=== PATIENT | female | born 1970 | race Caucasian/White ===

== ENCOUNTER 2016-09-22 11:56 | Emergency (ER) | payer MEDICAID ==
[~2016-09-22] VITALS: Ht 167.6 cm; Wt 81.6 kg
[~2016-09-22 11:56] MED LIST: BENICAR HCT 12.1 TAB PO; BISOPROLOL/HCTZ1 TA2 PO; CLINDAMYCIN HC300 MG PO; DARVOCET-N6 EACH/PAK OR; ISORDIL 10MG. T10 MG PO; OMEPRAZOLE40 MG PO; PHENERGAN 25MG.25 MG PR; PRAVASTATIN 20M20 MG PO; TOPAMAX200 MG PO; XANAX 0.5MG TA0.5 MG PO
[2016-09-22] MEDS ORDERED: KEPPRA 500 MG500 MG PO (12:14)
--- NOTE | 2016-09-22 12:39 | Emergency Room Report ---
History of Present Illness Time Seen by [id number] Presenting Problem in Triage Pt arrived:Walked Presenting Problem:PT C/O N/V/D X5-6 WEEKS. PT REPORTS BEING SEEN IN [facility] ED SEVERAL TIMES OVER THE PAST FEW WEEKS. PT REPORTS THAT SHE HASN'T BEEN ABLE TO KEEP DOWN ANY OF HER MEDS AND HAS BEEN INCONTINENT OF STOOL SEVERAL TIMES. PT REPORTS PAIN AROUND THE UMBILICUS AND RUQ OF ABD. 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 N Clinical Suspician of Infection? N Mental Status: 1 - Regular (Normal Baseline) Sepsis Risk:Low Sepsis Risk Have you (or family members/close friends) recently traveled outside the [place]? N If Yes, where/when: Have you had exposure to infectious disease within the past month? N TB? Other? Specify: Comment The patient says she's been sick for about 5-6 weeks with explosive yellow diarrhea and vomiting. No blood in her diarrhea. She has generalized abdominal pain. She has been to the emergency department at [facility] 3-4 times for this. She says she has not been admitted. She has had a couple of CAT scans. She has been tested for C. difficile which was negative. She was however also treated for the possibility of C. difficile by her primary care physician with Flagyl, which did not change anything. She was also diagnosed with a UTI and was treated with antibiotics for that. He has been taking [id number]-lov-[id number] Imodium without improvement. She has not seen her PCP, only spoken with him on the phone several times, Dr. Salter. She has a history of getting a colonoscopy in her 20s for frequent formed bowel movements, to rule out Crohn's disease. 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 She also complains of generalized weakness and muscle cramps. Multiple falls due to generalized weakness. States she is not able to get into the bathtub by her self or brush her hair by her self. She says that she has been hypokalemic during this episode and was treated with potassium in the emergency room, but is not on prescription potassium. She has a seizure disorder and is on Topamax, clonazepam, and Keppra, but has not taken it in 2 days because of nausea and vomiting. ALLERGIES Coded Allergies: Cephalosporins (Mild, 09/22/16) Penicillins (Mild, 09/22/16) acetaminophen (From LORTAB) (Mild, 09/22/16) ceftriaxone (Mild, 09/22/16) codeine (Mild, 09/22/16) hydrocodone (From LORTAB) (Mild, 09/22/16) ketorolac (Mild, 09/22/16) meperidine (From DEMEROL) (Mild, 09/22/16) metoclopramide (From REGLAN) (Mild, 09/22/16) morphine (Mild, 09/22/16) ondansetron (Mild, 09/22/16) sumatriptan (From IMITREX) (Mild, 09/22/16) vancomycin (Mild, 09/22/16) Home Medications Reported Medications OLMESARTAN/HYDROCHLOROTHIAZIDE (Benicar Hct 20-12.5 MG Tablet) 1 TAB PO DAILY BISOPROLOL FUMARATE/HCTZ (Bisoprolol-Hctz 5-6.25 MG Tab) 2 TAB PO DAILY Isosorbide Dinitrate (Isordil 10MG. Tablet (Generic)) 10 MG PO DAILY Alprazolam (Xanax 0.5MG) 0.5 MG PO TID Omeprazole (Omeprazole 40MG) 40 MG PO DAILY Pravastatin Sodium (Pravastatin 20MG) 5 MG PO DAILY Topiramate (Topamax) 100 MG PO QHS Clindamycin Hcl (Clindamycin 300MG) 300 MG PO TID Levetiracetam (Keppra 500 Mg Tablet) 500 MG PO BID History Medical History General CAD? No Angina: Yes CT: No Hypertension? Yes Hyperlipidemia? Yes CHF? No DVT? No PE? No COPD? No Asthma? No Anemia? No GERD? No Gastric ulcers? No GI Bleed? No Hernia? No Thyroid Problems? No Hypothyroidism? No CVA? No Seizures? No Diabetes? No Renal Insuffiency? No End Stage Renal Disease? No UTI? No Stones? No BPH? No GB Disease: Yes Nephritic Syndrome? No Asplenia? No Hepatitis? No Sickle Cell Disease? No Arthritis? No Migraines? No Cataracts? No Glaucoma? No MRSA? No HIV? No TB? No Anxiety? No Depression? No Cancer? No More? 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 Gastrointestinal abdominal pain, diarrhea, vomiting Musculoskeletal muscle pain Physical Exam Vital Signs Vital Signs Date Time Temp Pulse Resp B/P Pulse O2 O2 Flow FiO2 Ox Delivery Rate 09/22 1257 16 09/22 1205 98.4 79 18 148/81 93 General Appearance normal appearance, WD/WN Eye Exam - bilateral eye normal exam, bilateral eye PERRL, bilateral eye EOMI Ear, Nose, Throat hearing grossly normal, dry mucous membranes Neck normal inspection, non-tender, supple, full range of motion Respiratory Status Yes: trachea midline, chest symmetrical, non tender chest. No: respiratory distress. Lung Sounds bilateral: normal breath sounds, lungs clear. 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 Yes Dylan was queried for this patient? Yes Reference #: [id number] Comment pending - "manual process" Results/Orders Laboratory Tests 09/22/16 1245: Sodium 142, Potassium 3.3 L, Chloride 108 H, Carbon Dioxide 23, BUN 6 L, Creatinine 0.9, Estimated Creat Clear 102, Estimated GFR (MDRD) 68, Glucose 94, Calcium 8.8, Magnesium 2.0, Total Bilirubin 0.2, AST 12 L, ALT 29, Alkaline Phosphatase 87, Total Protein 7.5, Albumin 3.6, Globulin 3.9 H, Albumin/ Globulin Ratio 0.9 L, WBC 5.5, RBC 5.19, Hgb 13.9, Hct 42.7, MCV 82.2, RDW 14.0 , Plt Count 222, MPV 7.0 L, Gran % 65.8, Gran # 3.6, Lymphocytes % 28.7, Monocytes % 3.4, Eosinophils % 1.7, Basophils % 0.5, Lymphocytes # 1.6, Monocytes # 0.2, Eosinophils # 0.1, Basophils # 0.0, PUBS MCHC 32.5, MCH 26.7 L Current Medication Orders Sig/Arnold Start time Last Medication Dose Route Stop Time Status Admin Potassium Chloride 0 .STK-MED ONE 09/22 1350 DC PO Potassium Chloride 0 .STK-MED ONE 09/22 1348 DC PO Levetiracetam 1,000 MG ONCE ONE 09/22 1345 DC 09/22 PO 09/22 1346 1402 Potassium Chloride 20 MEQ ONCE ONE 09/22 1345 DC 09/22 PO 09/22 1346 1351 Sodium Chloride 1,000 ML .STK-MED ONE 09/22 1317 DC IV Sodium Chloride 1,000 ML .Q1H1M 09/22 1315 DC 09/22 IV 09/22 1415 1318 Promethazine HCl 6.25 MG ONCE ONE 09/22 1300 DC 09/22 IV 09/22 1301 1257 Sodium Chloride 25 ML ONCE ONE 09/22 1300 DC IV 09/22 1314 Promethazine HCl 0 .STK-MED ONE 09/22 1256 DC .ROUTE Hydromorphone HCl 0 .STK-MED ONE 09/22 1255 DCr .ROUTE Hydromorphone HCl 1 MG ONCE ONE 09/22 1245 DCr 09/22 IV 09/22 1246 1257 Ondansetron HCl 4 MG ONCE ONE 09/22 1245 CAN IV 09/22 1246 Sodium Chloride 10 ML PRN PRN 09/22 1245 AC IV 09/23 1233 Orders Procedure Date/time Status IV SALINE LOCK 09/22 1234 Active MAGNESIUM 09/22 1234 Complete DIARRHEA PANEL, PCR 09/22 1234 Active CBC WITH AUTO DIFF 09/22 1234 Complete CHEM 12 PROFILE 09/22 1234 Complete Progress - The patient requested pain medicine. ALLERGY profile reviewed. ALLERGIC to many pain medications, noted not allergic to Dilaudid. 1:15 PM: Case discussed with Dr. Soto, covering for Dr. Salter. Given her unremarkable laboratory profile, he prefers that the patient be discharged for outpatient follow-up with Dr. Salter. She'll be treated with Phenergan, he states that he will call Dr. Salter to let him know to expect a call. He expects that she will need a gastroenterology referral and referral for colonoscopy. 1:30 PM: Discussed plan with patient. She is agreeable. She requests another dose of pain medication before discharge, I declined. Departure Departure Disposition DC Home or Self Care(routine) Clinical Impression Primary Impression: Diarrhea Qualifiers: Diarrhea type: unspecified type Qualified Code: R19.7 - Diarrhea, unspecified Secondary Impressions: Abdominal pain, generalized Vomiting Qualifiers: Vomiting type: unspecified Vomiting Intractability: intractable Nausea presence: with nausea Qualified Code: R11.2 - Nausea with vomiting, unspecified Condition STABLE Referrals Adolfo Salter MD (Family) Patient Instructions DI for Abdominal Pain-Adult, DI for Diarrhea and Traveler's Diarrhea -- Adult, DI for Vomiting -- Adult Additional Instructions Call Dr. Salter tomorrow to arrange follow-up this week in his office. Additional instructions for ABDOMINAL PAIN: See your physician as soon as possible for further evaluation. Return immediately if worsening abdominal pain, vomiting, shortness of breath, fever, vomiting of blood or abdominal distention. Prescriptions Current Visit Scripts PROMETHAZINE HCL (Phenergan 25MG Tab (Geq)) 25 MG PO Q6HP PRN N/V #14 TAB Potassium Chloride (K-Dur) 20 MEQ PO BID #10 TER ED Critical Care Critical Care No at 0708
--- NOTE | 2016-09-22 12:39 | Emergency Room Report ---
History of Present Illness Time Seen by [id number] Presenting Problem in Triage Pt arrived:Walked Presenting Problem:PT C/O N/V/D X5-6 WEEKS. PT REPORTS BEING SEEN IN [place] ED SEVERAL TIMES OVER THE PAST FEW WEEKS. PT REPORTS THAT SHE HASN'T BEEN ABLE TO KEEP DOWN ANY OF HER MEDS AND HAS BEEN INCONTINENT OF STOOL SEVERAL TIMES. PT REPORTS PAIN AROUND THE UMBILICUS AND RUQ OF ABD. 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 N Clinical Suspician of Infection? N Mental Status: 1 - Regular (Normal Baseline) Sepsis Risk:Low Sepsis Risk Have you (or family members/close friends) recently traveled outside the [place]? N If Yes, where/when: Have you had exposure to infectious disease within the past month? N TB? Other? Specify: Comment The patient says she's been sick for about 5-6 weeks with explosive yellow diarrhea and vomiting. No blood in her diarrhea. She has generalized abdominal pain. She has been to the emergency department at [facility] 3-4 times for this. She says she has not been admitted. She has had a couple of CAT scans. She has been tested for C. difficile which was negative. She was however also treated for the possibility of C. difficile by her primary care physician with Flagyl, which did not change anything. She was also diagnosed with a UTI and was treated with antibiotics for that. He has been taking udht-okb-[id number] Imodium without improvement. She has not seen her PCP, only spoken with him on the phone several times, Dr. Salter. She has a history of getting a colonoscopy in her 20s for frequent formed bowel movements, to rule out Crohn's disease. 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 She also complains of generalized weakness and muscle cramps. Multiple falls due to generalized weakness. States she is not able to get into the bathtub by her self or brush her hair by her self. She says that she has been hypokalemic during this episode and was treated with potassium in the emergency room, but is not on prescription potassium. She has a seizure disorder and is on Topamax, clonazepam, and Keppra, but has not taken it in 2 days because of nausea and vomiting. ALLERGIES Coded Allergies: Cephalosporins (Mild, 09/22/16) Penicillins (Mild, 09/22/16) acetaminophen (From LORTAB) (Mild, 09/22/16) ceftriaxone (Mild, 09/22/16) codeine (Mild, 09/22/16) hydrocodone (From LORTAB) (Mild, 09/22/16) ketorolac (Mild, 09/22/16) meperidine (From DEMEROL) (Mild, 09/22/16) metoclopramide (From REGLAN) (Mild, 09/22/16) morphine (Mild, 09/22/16) ondansetron (Mild, 09/22/16) sumatriptan (From IMITREX) (Mild, 09/22/16) vancomycin (Mild, 09/22/16) Home Medications Reported Medications OLMESARTAN/HYDROCHLOROTHIAZIDE (Benicar Hct 20-12.5 MG Tablet) 1 TAB PO DAILY BISOPROLOL FUMARATE/HCTZ (Bisoprolol-Hctz 5-6.25 MG Tab) 2 TAB PO DAILY Isosorbide Dinitrate (Isordil 10MG. Tablet (Generic)) 10 MG PO DAILY Alprazolam (Xanax 0.5MG) 0.5 MG PO TID Omeprazole (Omeprazole 40MG) 40 MG PO DAILY Pravastatin Sodium (Pravastatin 20MG) 5 MG PO DAILY Topiramate (Topamax) 100 MG PO QHS Clindamycin Hcl (Clindamycin 300MG) 300 MG PO TID Levetiracetam (Keppra 500 Mg Tablet) 500 MG PO BID History Medical History General CAD? No Angina: Yes [place]: No Hypertension? Yes Hyperlipidemia? Yes CHF? No DVT? No PE? No COPD? No Asthma? No Anemia? No GERD? No Gastric ulcers? No GI Bleed? No Hernia? No Thyroid Problems? No Hypothyroidism? No CVA? No Seizures? No Diabetes? No Renal Insuffiency? No End Stage Renal Disease? No UTI? No Stones? No BPH? No GB Disease: Yes Nephritic Syndrome? No Asplenia? No Hepatitis? No Sickle Cell Disease? No Arthritis? No Migraines? No Cataracts? No Glaucoma? No MRSA? No HIV? No TB? No Anxiety? No Depression? No Cancer? No More? 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 Gastrointestinal abdominal pain, diarrhea, vomiting Musculoskeletal muscle pain Physical Exam Vital Signs Vital Signs Date Time Temp Pulse Resp B/P Pulse O2 O2 Flow FiO2 Ox Delivery Rate 09/22 1257 16 09/22 1205 98.4 79 18 148/81 93 General Appearance normal appearance, WD/WN Eye Exam - bilateral eye normal exam, bilateral eye PERRL, bilateral eye EOMI Ear, Nose, Throat hearing grossly normal, dry mucous membranes Neck normal inspection, non-tender, supple, full range of motion Respiratory Status Yes: trachea midline, chest symmetrical, non tender chest. No: respiratory distress. Lung Sounds bilateral: normal breath sounds, lungs clear. 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 Yes Dylan was queried for this patient? Yes Reference #: [id number] Comment pending - "manual process" Results/Orders Laboratory Tests 09/22/16 1245: Sodium 142, Potassium 3.3 L, Chloride 108 H, Carbon Dioxide 23, BUN 6 L, Creatinine 0.9, Estimated Creat Clear 102, Estimated GFR (MDRD) 68, Glucose 94, Calcium 8.8, Magnesium 2.0, Total Bilirubin 0.2, AST 12 L, ALT 29, Alkaline Phosphatase 87, Total Protein 7.5, Albumin 3.6, Globulin 3.9 H, Albumin/ Globulin Ratio 0.9 L, WBC 5.5, RBC 5.19, Hgb 13.9, Hct 42.7, MCV 82.2, RDW 14.0 , Plt Count 222, MPV 7.0 L, Gran % 65.8, Gran # 3.6, Lymphocytes % 28.7, Monocytes % 3.4, Eosinophils % 1.7, Basophils % 0.5, Lymphocytes # 1.6, Monocytes # 0.2, Eosinophils # 0.1, Basophils # 0.0, PUBS MCHC 32.5, MCH 26.7 L Current Medication Orders Sig/Arnold Start time Last Medication Dose Route Stop Time Status Admin Potassium Chloride 0 .STK-MED ONE 09/22 1350 DC PO Potassium Chloride 0 .STK-MED ONE 09/22 1348 DC PO Levetiracetam 1,000 MG ONCE ONE 09/22 1345 DC 09/22 PO 09/22 1346 1402 Potassium Chloride 20 MEQ ONCE ONE 09/22 1345 DC 09/22 PO 09/22 1346 1351 Sodium Chloride 1,000 ML .STK-MED ONE 09/22 1317 DC IV Sodium Chloride 1,000 ML .Q1H1M 09/22 1315 DC 09/22 IV 09/22 1415 1318 Promethazine HCl 6.25 MG ONCE ONE 09/22 1300 DC 09/22 IV 09/22 1301 1257 Sodium Chloride 25 ML ONCE ONE 09/22 1300 DC IV 09/22 1314 Promethazine HCl 0 .STK-MED ONE 09/22 1256 DC .ROUTE Hydromorphone HCl 0 .STK-MED ONE 09/22 1255 DCr .ROUTE Hydromorphone HCl 1 MG ONCE ONE 09/22 1245 DCr 09/22 IV 09/22 1246 1257 Ondansetron HCl 4 MG ONCE ONE 09/22 1245 CAN IV 09/22 1246 Sodium Chloride 10 ML PRN PRN 09/22 1245 AC IV 09/23 1233 Orders Procedure Date/time Status IV SALINE LOCK 09/22 1234 Active MAGNESIUM 09/22 1234 Complete DIARRHEA PANEL, PCR 09/22 1234 Active CBC WITH AUTO DIFF 09/22 1234 Complete CHEM 12 PROFILE 09/22 1234 Complete Progress - The patient requested pain medicine. ALLERGY profile reviewed. ALLERGIC to many pain medications, noted not allergic to Dilaudid. 1:15 PM: Case discussed with Dr. Soto, covering for Dr. Salter. Given her unremarkable laboratory profile, he prefers that the patient be discharged for outpatient follow-up with Dr. Salter. She'll be treated with Phenergan, he states that he will call Dr. Salter to let him know to expect a call. He expects that she will need a gastroenterology referral and referral for colonoscopy. 1:30 PM: Discussed plan with patient. She is agreeable. She requests another dose of pain medication before discharge, I declined. Departure Departure Disposition DC Home or Self Care(routine) Clinical Impression Primary Impression: Diarrhea Qualifiers: Diarrhea type: unspecified type Qualified Code: R19.7 - Diarrhea, unspecified Secondary Impressions: Abdominal pain, generalized Vomiting Qualifiers: Vomiting type: unspecified Vomiting Intractability: intractable Nausea presence: with nausea Qualified Code: R11.2 - Nausea with vomiting, unspecified Condition STABLE Referrals Adolfo Salter MD (Family) Patient Instructions DI for Abdominal Pain-Adult, DI for Diarrhea and Traveler's Diarrhea -- Adult, DI for Vomiting -- Adult Additional Instructions Call Dr. Salter tomorrow to arrange follow-up this week in his office. Additional instructions for ABDOMINAL PAIN: See your physician as soon as possible for further evaluation. Return immediately if worsening abdominal pain, vomiting, shortness of breath, fever, vomiting of blood or abdominal distention. Prescriptions Current Visit Scripts PROMETHAZINE HCL (Phenergan 25MG Tab (Geq)) 25 MG PO Q6HP PRN N/V #14 TAB Potassium Chloride (K-Dur) 20 MEQ PO BID #10 TER ED Critical Care Critical Care No at [id number]
[2016-09-22 12:59] LABS: HEMOGLOBIN 13.9 g/dL (12.2-16.2); LYMPH # 1.6 K/mm3 (0.7-4.5); LYMPH % 28.7 % (10-50.0)
[2016-09-22] MEDS ORDERED: PHENERGAN25 M3 PO (13:33)
[2016-09-22] MEDS ORDERED: K-DUR 2020 MEQ PO (13:33)
[2016-09-22 15:29] VITALS: BP 136/82
[2016-09-24] MEDS ORDERED: CYCLOBENZAPRINE10 M1 OR (20:30)
[2016-09-25] MEDS ORDERED: KEPPRA1000 MG PO (08:45)
[2016-09-25] MEDS ORDERED: TRAZODONE150 MG PO (09:45)
[2016-09-25] MEDS ORDERED: CLONAZEPAM 1MG T1 MG PO (09:46)
[2016-09-25] MEDS ORDERED: CELEXA40 MG PO (09:48)
[2016-09-25] MEDS ORDERED: LIPITOR40 M1 PO (09:52)
[2016-09-25] MEDS ORDERED: TOPAMAX200 MG PO (09:55)
[2016-09-25] MEDS ORDERED: ASPIR 8181 MG PO (09:56)
[2016-09-25] MEDS ORDERED: CALTRATE 600 +1 TA1 PO (10:00)
[2016-09-25] MEDS ORDERED: CALCITONIN (10:01)
[2016-09-25] MEDS ORDERED: HYDROCHLOROTHIA25 M1 PO (10:02)
[2016-09-25] MEDS ORDERED: MAGNESIUM OXID400 MG PO (14:27)
== END 2016-09-22 15:29 | disposition home or self-care (01) ==
LOC: ER 11:56
PROVIDERS: Emergency Medicine
DX: R19.7 Diarrhea, unspecified (principal); R11.2 Nausea with vomiting, unspecified; I10 Essential (primary) hypertension; Z87.891 Personal history of nicotine dependence